=== PATIENT | female | born 1990 | race Caucasian/White ===

== ENCOUNTER 2016-12-15 12:01 | Emergency (ER) | payer BC ==
[2016-12-15 12:34] VITALS: BP 121/76
--- NOTE | 2016-12-15 12:45 | UC ---
Complaint Female HPI - HPI Summary HPI Summary: complaint of burning and itching with urination for the last 4 days increase in frequency and urgency not urinating a large amount of urine treated for BV 1 week ago- took flagyl still has purulent itchy vaginal discharge denies fever, abdominal pain and back pain LMP 11/27/16 last sexual encounter approx 2 weeks ago and partner was dx with chlamydia has appt [facility] sun[facility] with [facility] physical former partner dx with chlamydia - History Of Current Complaint Chief Complaint: UCGU Stated Complaint: UTI TYPE SYMPTOMS Time Seen by Provider: 12/15/16 12:36 Hx Obtained From: Patient Hx Last Menstrual Period: 12/04/16 - Allergies/Home Medications Allergies/Adverse Reactions: Allergies Allergy/AdvReac Type Severity Reaction Status Date / Time No Known Allergies Allergy Verified 07/09/15 09:31 Home Medications: Home Medications Metronidazole [Flagyl 500 MG TAB] 500 mg PO TID 12/15/16 [History Confirmed 07/22] Naltrexone [Vivitrol] 380 mg IM 12/15/16 [History] PMH/Surg Hx/FS Hx/Imm Hx Previously Healthy: Yes Endocrine History Of: Denies: Diabetes, Thyroid Disease, Hyperthyroidism, Hypothyroidism, Dyslipidemia Cardiovascular History Of: Denies: Cardiac Disorders, Hypertension, Pacemaker/ICD, Myocardial Infarction , Congestive Heart Failure, Atrial Fibrillation, Deep Vein Thrombosis, Bleeding Disorders Respiratory History Of: Denies: COPD, Asthma, Bronchitis, Pneumonia, Pulmonary Embolism GI/ History Of: Denies: Gastroesophageal Reflux, Ulcer, Gastrointestinal Bleed, Gall Bladder Disease, Kidney Stones, Diverticulitis, Renal Disease, Urosepsis Neurological History Of: Denies: TIA, CVA, Dementia, Seizures, Migraine Psychological History Of: Denies: Anxiety, Depression, Bipolar Disorder, Schizophrenia, Post Traumatic Stress Disorder Cancer History Of: Denies: Lung Cancer, Colorectal Cancer, Breast Cancer, Prostate Cancer, Cervical Cancer Other History Of: Negative For: HIV, Hepatitis B, Hepatitis C - Surgical History Surgical History: None - Family History Known Family History: Negative: Cardiac Disease, Hypertension, Diabetes - Social History Occupation: Employed Full-time Lives: With Family Alcohol Use: None Alcohol Amount: 8 months clean Substance Use Type: Heroin Substance Use Comment - Amount & Last Used: 8 months clean Smoking Status (MU): Former Smoker Type: Cigarettes Amount Used/How Often: 1/2 ppd Length of Time of Smoking/Using Tobacco: 8 years Have You Smoked in the Last Year: Yes Household Exposure Type: Cigarettes Review of Systems Constitutional: Negative Skin: Negative Eyes: Negative ENT: Negative Respiratory: Negative Cardiovascular: Negative Gastrointestinal: Negative Genitourinary: Dysuria Motor: Negative Neurovascular: Negative Musculoskeletal: Negative Neurological: Negative Psychological: Negative All Other Systems Reviewed And Are Negative: Yes Physical Exam Triage Information Reviewed: Yes Appearance: No Pain Distress, Well-Nourished Vital Signs: Initial Vital Signs Temp 98.8 F 12/15/16 12:26 Pulse 65 12/15/16 12:26 Resp 16 12/15/16 12:26 BP 121/76 12/15/16 12:26 Pulse Ox 99 12/15/16 12:26 Vital Signs Reviewed: Yes Eyes: Positive: Conjunctiva Clear ENT: Positive: Pharynx normal, TMs normal Neck: Positive: No Lymphadenopathy Respiratory: Positive: Lungs clear, Normal breath sounds, No respiratory distress, No accessory muscle use Cardiovascular: Positive: RRR, No Murmur, Pulses Normal Abdomen Description: Positive: Nontender, No Organomegaly, Soft. Negative: CVA Tenderness (R), CVA Tenderness (L), Distended, Guarding Bowel Sounds: Positive: Present Musculoskeletal: Positive: No Edema Neurological: Positive: Alert Psychological Exam: Normal Skin Exam: Normal - External genitalia without erythema, exudate or discharge. Vaginal vault has thick whitish green discharge. Cervix is of normal color without lesion. The os is closed. There is no bleeding noted. Uterus is noted to be of normal size and nontender. No cervical motion tenderness is seen. No masses are palpated. The adnexa are without masses or tenderness. Complaint Female Dx - Course Course Of Treatment: exam completed. will treat for chlamydia now. STD testing done. will treat for UTI - Differential Dx/Diagnosis Differential Diagnosis/HQI/PQRI: Sexually Transmitted Disease, Urinary Tract Infection Provider Diagnoses: UTI. testing for sexually transmitted infection Discharge - Discharge Plan Condition: Stable Disposition: HOME Patient Education Materials: Urinary Tract Infection in Women (ED), Sexually Transmitted Diseases (ED), Safe Sex (ED) Additional Instructions: please finish your prescription for flagyl You have been treated for probable chlamydia infection please abstain from sexual contact for 7 days you are alos being treated for urinary infection Please take antibiotic as directed Increase fluids and rest Take acetaminophen or ibuprofen for fever or pain Please review your discharge instructions. If your symptoms do not improve please call your primary care provider or return to urgent care. please call next week for your results of testing for sexually transmitted diseases
[2016-12-15] MEDS ORDERED: Azithromycin TAB* 250 MG PO ONE (12:58)
--- NOTE | 2016-12-16 16:59 | UC ---
Progress - Progress Note Progress Note: VAGINAL SWAB POSITIVE FOR YEAST. MAGDY SENT TO [facility] IN [place].
[2016-12-17 11:35] LABS: Syphilis Index < 0.1 Index
== END 2016-12-15 13:39 | disposition home or self-care (01) ==
LOC: UCEAST 12:01
DX: N39.0 Urinary tract infection, site not specified (principal); Z11.3 Encounter for screening for infections with a predominantly sexual mode of transmission; F11.90 Opioid use, unspecified, uncomplicated; Z87.891 Personal history of nicotine dependence
CPT/HCPCS: 36415; 81003; 86592; 86803; 87086; 87389; 87480; 87491; 87510; 87591; 87661; 99212; A9270-GY; G0463; G0475

== ENCOUNTER 2016-12-25 09:44 | Emergency (ER) | payer BC ==
[2016-12-25 09:56] VITALS: BP 122/65
--- NOTE | 2016-12-25 11:33 | UC ---
Complaint Female HPI - HPI Summary HPI Summary: complaint of burning with urination that started approx 3 days ago increase in frequency and urgency denies blood in urine finished a course of bactrim for 3 days- last dose 1 week ago denies back pain, abdominal pain, vaginal discharge and fever not taking any medication for symptoms - History Of Current Complaint Chief Complaint: UCGU Stated Complaint: UTI SYMPTOMS-BURNING/ITCHING Time Seen by Provider: 12/25/16 11:20 Hx Obtained From: Patient Hx Last Menstrual Period: 11/24/16 - Allergies/Home Medications Allergies/Adverse Reactions: Allergies Allergy/AdvReac Type Severity Reaction Status Date / Time No Known Allergies Allergy Verified 07/09/15 09:31 PMH/Surg Hx/FS Hx/Imm Hx Previously Healthy: No - UTI, treatment for chlamydia Endocrine History Of: Denies: Diabetes, Thyroid Disease, Hyperthyroidism, Hypothyroidism, Dyslipidemia Cardiovascular History Of: Denies: Cardiac Disorders, Hypertension, Pacemaker/ICD, Myocardial Infarction , Congestive Heart Failure, Atrial Fibrillation, Deep Vein Thrombosis, Bleeding Disorders Respiratory History Of: Denies: COPD, Asthma, Bronchitis, Pneumonia, Pulmonary Embolism GI/ History Of: Denies: Gastroesophageal Reflux, Ulcer, Gastrointestinal Bleed, Gall Bladder Disease, Kidney Stones, Diverticulitis, Renal Disease, Urosepsis Neurological History Of: Denies: TIA, CVA, Dementia, Seizures, Migraine Psychological History Of: Denies: Anxiety, Depression, Bipolar Disorder, Schizophrenia, Post Traumatic Stress Disorder Cancer History Of: Denies: Lung Cancer, Colorectal Cancer, Breast Cancer, Prostate Cancer, Cervical Cancer Other History Of: Negative For: HIV, Hepatitis B, Hepatitis C - Surgical History Surgical History: None - Family History Known Family History: Negative: Cardiac Disease, Hypertension, Diabetes - Social History Occupation: Employed Full-time Lives: With Family Alcohol Use: None Alcohol Amount: 8 months clean Substance Use Type: Heroin Substance Use Comment - Amount & Last Used: 8 months clean Smoking Status (MU): Former Smoker Type: Cigarettes Amount Used/How Often: 1/2 ppd Length of Time of Smoking/Using Tobacco: 8 years Have You Smoked in the Last Year: Yes Household Exposure Type: Cigarettes Cessation Counseling: Patient Advised to Stop Review of Systems Constitutional: Negative Skin: Negative Eyes: Negative ENT: Negative Respiratory: Negative Cardiovascular: Negative Gastrointestinal: Negative Genitourinary: Dysuria, Frequency, Urgency Motor: Negative Neurovascular: Negative Musculoskeletal: Negative Neurological: Negative Psychological: Negative All Other Systems Reviewed And Are Negative: Yes Physical Exam Triage Information Reviewed: Yes Appearance: No Pain Distress, Well-Nourished Vital Signs: Initial Vital Signs Temp 97.5 F 12/25/16 09:52 Pulse 81 12/25/16 09:52 Resp 17 12/25/16 09:52 BP 122/65 12/25/16 09:52 Pulse Ox 100 12/25/16 09:52 Vital Signs Reviewed: Yes Eyes: Positive: Conjunctiva Clear ENT: Positive: Pharynx normal, TMs normal Neck: Positive: No Lymphadenopathy Respiratory: Positive: Lungs clear, Normal breath sounds, No respiratory distress, No accessory muscle use Cardiovascular: Positive: RRR, No Murmur, Pulses Normal Abdomen Description: Positive: Nontender, No Organomegaly, Soft. Negative: CVA Tenderness (R), CVA Tenderness (L), Distended, Guarding Bowel Sounds: Positive: Present Musculoskeletal: Positive: No Edema Neurological: Positive: Alert Psychological Exam: Normal Skin Exam: Normal Complaint Female Dx - Course Course Of Treatment: exam completed. will treat with macrobid for UTI- last culture shows susceptibility to macrobid - Differential Dx/Diagnosis Differential Diagnosis/HQI/PQRI: Urinary Tract Infection Provider Diagnoses: UTI Discharge - Discharge Plan Condition: Stable Disposition: HOME Prescriptions: Nitrofurantoin Monohyd Macro [Macrobid] 100 mg PO BID #14 cap Phenazopyridine TAB* [Pyridium 100 mg TAB*] 100 mg PO TID #6 tab Patient Education Materials: Urinary Tract Infection in Women (ED) Referrals: Amando Ellis MD [Primary Care Provider] - Additional Instructions: Please take antibiotic as directed Increase fluids and rest Take acetaminophen or ibuprofen for fever or pain Please review your discharge instructions. If your symptoms do not improve please call your primary care provider or return to urgent care.
== END 2016-12-25 11:38 | disposition home or self-care (01) ==
LOC: UCEAST 09:44
DX: N39.0 Urinary tract infection, site not specified (principal); Z87.891 Personal history of nicotine dependence
CPT/HCPCS: 81003; 87086; 99211; G0463

== ENCOUNTER 2017-09-30 20:27 | Emergency (ER) | payer OTHER ==
[2017-09-30 20:49] VITALS: BP 128/76
[2017-09-30] MEDS ORDERED: Mupirocin 2% OINT* TUBE TOPICAL ONE (21:06)
[2017-09-30] MEDS ORDERED: Tetan/Diph/Pertus SYR(Tdap)* 0.5 ML SYR(BOOSTRIX) use SYR IM ONE (21:21)
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
== END 2017-09-30 21:40 | disposition home or self-care (01) ==
LOC: UCEAST 20:27
DX: T23.211A Burn of second degree of right thumb (nail), initial encounter (principal); T31.0 Burns involving less than 10% of body surface; X19.XXXA Contact with other heat and hot substances, initial encounter; Y93.E8 Activity, other personal hygiene; Y92.009 Unspecified place in unspecified non-institutional (private) residence as the place of occurrence of the external cause; Z23 Encounter for immunization; Z88.5 Allergy status to narcotic agent; Z87.891 Personal history of nicotine dependence
CPT/HCPCS: 16020; 90715; 96372; 99212; G0463

== ENCOUNTER 2019-01-22 17:28 | Emergency (ER) | payer BC, OTHER ==
--- OUTSIDE RECORDS SUMMARY | 2019-01-22 17:34 | XMS REPORT | Continuity of Care Document ---
:1990 Author Organization [facility] Address [address], [place] [id number] Phone Care Team Providers Name Role Phone Patsy Bai NP Unavailable Unavailable Allergies, Adverse Reactions, Alerts Substance Reaction Status No Known Allergies Active Medications Medication Instructions Dosage Effective Status Comments Dates (start - stop) Valtrex 1 gram take 1 tablet by - Active tablet oral route daily metronidazole 500 take 1 tablet by - Active mg tablet oral route twice a day for 7 days LILETTA (unknown Not Available - No Longer strength) Active Problems Condition Effective Dates (start - Clinical Status Comments stop) Encounter for removal of intrauterine contraceptive device Encntr screen for infections w sexl mode of transmiss Encounter for oth general cnsl and advice on contraception Acute vaginitis Herpesviral infection of urogenital system, unspecified Candidiasis of vulva and vagina Acute vaginitis Human immunodeficiency virus [HIV] - counseling Encounter for screening for human - immunodeficiency virus Encounter for routine checking of intrauterine contracep dev Encntr screen for infections w sexl mode of transmiss Acute vaginitis Encounter for test, result negative Human immunodeficiency virus [HIV] - counseling Encounter for screening for human - immunodeficiency virus Encounter for routine checking of intrauterine contracep dev Encntr screen for infections w sexl mode of transmiss Acute vaginitis Encounter for test, result negative Encounter for insertion of intrauterine contraceptive device Encntr screen for infections w sexl mode of transmiss Acute vaginitis Urinary tract infection, site not specified Dysuria Enctr srvlnc implantable subdermal contraceptive Encounter for removal of intrauterine contraceptive device Enctr for init prescription of implntbl subdermal contracep Encounter for oth general cnsl and - advice on contraception Encounter for routine checking of intrauterine contracep dev Acute vaginitis Human immunodeficiency virus [HIV] - counseling Encounter for routine checking of intrauterine contracep dev Encntr screen for infections w sexl mode of transmiss Noninflammatory disorder of vagina, unspecified Encounter for screening for human - immunodeficiency virus Enctr srvlnc implantable subdermal contraceptive Encounter for insertion of intrauterine contraceptive device Encntr screen for infections w sexl mode of transmiss Frequency of micturition Encntr screen for infections w sexl mode of transmiss Acute vaginitis Encntr screen for infections w sexl mode of transmiss Enctr srvlnc implantable subdermal contraceptive Other psychoactive substance dependence, in remission Enctr srvlnc implantable subdermal contraceptive Chlamydial infection, unspecified STI Screening BV Implant, Insertion BV Yeast-vulvovaginal Vulvar Lesion Chlamydia Chlamydia Family Planning Counseling IUC Removal STI Screening BV HIV, Screening HIV Counseling LABORATORY EXAM NOS LABORATORY EXAM NOS RhD positive - Active CDD Procedures Procedure Date WET SMEAR ASSAY OF BODY FLUID-PH OFFICE/OUTPATIENT VISIT, EST REMOVE INTRAUTERINE DEVICE Tray Fee N.GONORRHOEAE, DNA, AMP PROB CHYLMD DNA, AMP PROBE TRICHOMONAS VAGIN, DIR PROBE VAGINITIS RX 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 Other Tail Board Worker.Svc. STI Results Test Name Date and Time Measure Units Reference Range Abnormal Flag Status Comments Panel Description: Wet Mount Final Wet Mount 12:27:22 Hyphae/Maria Victoria: noBudding yeast: Final noTrich: noClue cells: yes (>=20%)WBCs: yes (moderate)Amine/Whiff test: negativepH: 5.5 Advance Directives Directive Yes / No Effective Date File Name No information Encounters Encounter Practice Location Reason(s) Diagnoses Date Provider Providers Description For Visit Copied on Encounter OFFICE/OUTPA [facility] Vaginal Encounter for Hayden- Richardson Referring TIENT VISIT, [facility] [place] a/o Vulvar removal of - Patsy. 620 Provider: EST [place] Itching intrauterine [address], [place] (chief contraceptive [place], [place], Richardson J, [address] [place], 620 complaint) deviceEncntr [address], [place]. [place] screen for tel:[phone] St, [place], [place], [place], [place] [address] [place], [address]. [place], sex[place] mode of tel:[phone], transmissEncoun 444661 [place] ter for oth tel:[phone] general cnsl [id number] and advice on contraceptionAc mounika vaginitisHerpes viral infection of urogenital system, unspecifiedCand idiasis of vulva and vagina [facility] Acute vaginitis Sep- [facility] [place]. [address], [place], [place], [facility], [address] [address]. [address] [place] tel:[phone] St, [place], [address] [place], [id number], [place] tel:[phone] [facility] Human Feb-0 Raphaelidis Referring [facility] [place] immunodeficienc [place]. 620 W Provider: [facility] y virus [HIV] [address], [place] counselingEncou [place], Raphaelidis [facility], 620 [place] [address]. , [address] screening for tel:[phone] [address], [place], [place], [place] [address] [place], immunodeficienc [address]. [id number], y tel:[phone] [place] virusEncounter [id number] tel:[phone] for routine [phone] checking of intrauterine contracep devEncntr screen for infections w sexl mode of transmissAcute vaginitisEncoun ter for test, result negative [facility] Human Dec- Brenton Mustafa. Referring [facility] [place] immunodeficienc [address] [place] Provider: Caridad y virus [HIV] [address] St, [place], [place] [address], [place], [place], 620 nter for [place]. [address] [place] [address] [place] screening for [facility], [place], [place], [place], [place], [address]. [place], immunodeficienc [id number], y [place] virusEncounter tel:[phone] for routine [phone] checking of intrauterine contracep devEncntr screen for infections w sexl mode of transmissAcute vaginitis [facility] Encounter for [place]-Hem Referring [facility] [place] test, 2-201 michael Sueane. Provider: [facility] result 8 [address] [place] [address], [place], [place], 620 [place], [address]. mmer, [address] insertion of tel:[phone] [address], St, [place], intrauterine [address] [place] [address]. [id number], deviceEncntr tel:[phone] [place] screen for 271091 tel:[phone] infections w 045875 sexl mode of transmissAcute vaginitisUrinar y tract infection, site not specifiedDysuri a [facility] Enctr srvlnc Hayden- [place]. Referring [facility] [place] implantable [address] Provider: [facility] subdermal [address], [place], [place] [address], [place], [place], [address] [place], [place], [place], [place], [address]. [place], [id number], [place] tel:[phone] [facility] Encounter for Guggino Referring [facility] [place] removal of 1-201 [place]. Provider: [facility] intrauterine 7 [address], [place], [place], [place], 620 [place], [address], [address] [place]. [address], St, [place], prescription of tel:[phone] [place] impl[place]bl [address]. [id number], subdermal tel:[phone] [place] contracep 615911 tel:[phone] [facility] Encounter for Korn[place] [place] oth general 0-201 Brianna. [address] [place] cnsl and advice [address], [place], [place], 620 contraceptionEn [address]. [address] [place] counter for tel:[phone] St, [place], routine [address] [place], checking of [id number], intrauterine [place] contracep tel:[phone] devAcute 846195 vaginitis [facility] Human May- Brenton Mustafa. Referring [facility] [place] immunodeficienc 2 [address] Provider: Caridad y virus [HIV] 7 St, [place], [place], [address], [place], [place], 620 nter for [place]. [address] routine [address], [place], [place], [place], [place], [address]. [place], intrauterine [id number], contracep [place] devEncntr tel:[phone] screen for [phone] infections w sexl mode of transmissNoninf lammatory disorder of vagina, unspecifiedEnco unter for screening for human immunodeficienc y virus [facility] Enctr srvlnc Sep-0 Brenton Mustafa. [facility] [place] implantable [address] [place] subdermal [address], [place], [place], [address], [place], 620 counter for [place]. [address] [place] insertion of [address], [place], intrauterine [place], contraceptive [id number], deviceEncntr [place] screen for tel:[phone] infections w [phone] sexl mode of transmiss [facility] Frequency of December-0 Parete [facility] [place] micturitionEncn . [address] tr screen for [address], [place], [place], 620 [place] [address]. [place] transmissAcute tel:+[phone] St, [place], vaginitis [address] [place], [id number], [place] tel:[phone] [facility] Encntr screen Jul- Borglum [facility] [place] for infections 0-201 Carmen. 620 [place] w sexl mode of [address], [place] transmissEnctr [place], [place], 620 srvlnc [address], [place]. [place] implantable tel:[phone] St, [place], subdermal [address] [place], contraceptiveOt [id number], her [place] psychoactive tel:[phone] substance 150518 dependence, in remission [facility] Enctr srvlnc Borgl[facility] [place] implantable Carmen. 620 [place] subdermal [address], [place] contraceptiveCh [place], [place], [facility], 620 lamydial [address], [place]. [place] infection, tel:+[phone] St, [place], unspecified [address] [place], [id number], [place] tel:[phone] [facility] STI ScreeningBV P[facility]te [facility] [place] Ramona. [address], [place], [facility], [address] [address]. [address] [place] tel:+[phone] St, [place], [address] [place], [id number], [place] tel:[phone] [facility] Implant, Apr- Ardon Jamia. [facility] [place] Insertion [address], [place], [place], [address]. [facility], [facility] tel:[phone] [address], [place], [place], [id number], [place] tel:[phone] [facility] Apr- [facility] [place]. [address], [place], [facility], [address] [address]. [address] [place] tel:+[phone] St, [place], [address] [place], [id number], [place] tel:[phone] [facility] BVYeast-vulvova Mar- [facility] [place] ginalVulvar [place]. [address], [place], [facility], [address] [address]. [address] [place] tel:+[phone] St, [place], [address] [place], [id number], [place] tel:[phone] [facility] Chlamydia Mar-0 Ardon Jamia. Consulting [facility] [place] [address] Provider: [facility] [address], [place], [address]. [facility]. [facility], [facility] tel:[phone], [place], [place], [id number], [place] tel:[phone] [facility] Chlamydia Mar-0 DiCostanzo [facility] [place] 7-201 Karine. [address], [facility], [place], [facility], 620 [address]. [address] [place] tel:[phone] St, [place], [address] [place], [id number], [place] tel:[phone] [facility] Family Planning Mar-0 Avidano [facility] [place] CounselingIUC 2 [place]. [address] Removal [address], [facility], [place], [facility], 620 [address]. [address] [place] tel:[phone] St, [place], [address] [place], [id number], [place] tel:[phone] [facility] STI ScreeningBV Aug-0 [facility] [place] 1 [place]. [address], [facility], [place], [facility], [address] [address]. [address] [place] tel:[phone] St, [place], [address] [place], [id number], [place] tel:[phone] [facility] HIV, Mar-0 [facility] [place]. [address] W [facility] Counseling [address], [facility], [place], [facility], [address] [address]. [address] [place] tel:[phone] St, [place], [address] [place], [id number], [place] tel:[phone] [facility] LABORATORY EXAM Mar-2 Raphaelidis [facility] [place] NOS 6-201 [place]. [address], [facility], [place], [facility], [address] [address]. [address] [place] tel:[phone] St, [place], [address] [place], [id number], [place] tel:[phone] [facility] LABORATORY EXAM [facility] [place] NOS 4-201 [place]. [address], [facility], [place], [facility], 620 [address]. [address] [place] tel:[phone] St, [place], [address] [place], [id number], [place] tel:[phone] Family History Family Member Diagnosis Age At Onset 1st degree relative No hx of coronary heart disease (female <65, male <55) 1st degree relative No hx of venous thromboembolism 1st degree relative No hx of cancer of breast, colon, endometrium or ovary Family history of Hypertension Family history of Coronary artery disease Immunizations Vaccine Date Status Comments measles, mumps and rubella administered Note: per pt history ; Source: virus vaccine Source Unspecified Hep A (adult) administered Note: per pt history ; Source: Source Unspecified Hep B, adult, 3 dose administered Note: per pt history ; Source: Source Unspecified HPV (quadrivalent) administered Note: per pt history ; Source: Source Unspecified Payers Payer name Insurance type Covered alliance party ID Authorization(s) Jack MARIEE [facility] CI [id number] Social History Type Description Quantity Date Captured Comments Alcohol Use Details Unknown Caffeine Use Details Unknown Tobacco Use Status Unknown Smoking Status Current every day smoker Smoking Tobacco Use Cigarette: Years Used 8 Cigarette: No Details Available Details Sex Female Vital Signs Date / Height Weight BMI Pulse Blood Temperature Respiratory Body Head BMI Pulse Inhaled Time: Rate Pressure Rate Surface Circumference percentile Ox Ox Area No information Chief Complaint And Reason For Visit Most recent encounter only, dated '01/08/2019 11:50'. Vaginal a/o Vulvar Itching (chief complaint) Reason For Referral Reason For Referral No information Plan Of Treatment Date Type Action Status Goal Tobacco cessation counseling completed History Of Present Illness Encounter Date Complaint History Of Present Illness No information Functional Status Date Functional Assessment No information Medications Administered Medication Instructions Dosage Effective Dates (start - stop) Status Comments No information Instructions Date Instruction Additional Information No information Assessments Type Assessment Date assessment Encounter for removal of intrauterine contraceptive device 2018 assessment Encntr screen for infections w sexl mode of transmiss assessment Encounter for oth general cnsl and advice on contraception 2018 assessment Acute vaginitis assessment Herpesviral infection of urogenital system, unspecified 2018 assessment Candidiasis of vulva and vagina Goals Health Concern Goal Type Priority Status Date No information Medical Equipment Description Device [place] Device Identifier Effective Dates (start - stop ) Status No information Mental Status Date Cognitive Assessment Normal Orientation Health Concerns Observation Date No information Concern Status Date No information
[2019-01-22 17:48] VITALS: BP 123/77
--- NOTE | 2019-01-22 18:55 | UC ---
Cardiac HPI - HPI Summary HPI Summary: 28-year-old woman comes in with a chief complaint of right sided chest pain. About 2 weeks ago patient had trauma to her chest. She had chest x-rays at that time and no fracture was seen. Her pain was improving until yesterday when she had sudden onset of splinting right lateral posterior lower chest pain. Does not feel short of breath at rest. Pain is worse with taking a deep breath or any kind of movement. No complaint of any abdominal pain. No fevers or chills or chest congestion. - History of Current Complaint Chief Complaint: UCGeneralIllness Stated Complaint: RIB INJURY Time Seen by Provider: 01/22/19 17:37 Hx Last Menstrual Period: unsure; states preg test this morning and it was negative Pain Intensity: 8 - Allergy/Home Medications Allergies/Adverse Reactions: Allergies Allergy/AdvReac Type Severity Reaction Status Date / Time narcotics Allergy recovery Uncoded 09/30/17 20:50 PMH/Surg Hx/FS Hx/Imm Hx Previously Healthy: Yes Other History Of: Negative For: HIV, Hepatitis B, Hepatitis C - Surgical History Surgical History: None - Family History Known Family History: Negative: Cardiac Disease, Hypertension, Diabetes - Social History Alcohol Use: None Alcohol Amount: 8 months clean Substance Use Type: Heroin Substance Use Comment - Amount & Last Used: 8 months clean Smoking Status (MU): Heavy Every Day Tobacco Smoker Type: Cigarettes Amount Used/How Often: 1/2 ppd Length of Time of Smoking/Using Tobacco: 8 years Have You Smoked in the Last Year: Yes Household Exposure Type: Cigarettes Review of Systems All Other Systems Reviewed And Are Negative: Yes Constitutional: Positive: Negative Skin: Positive: Negative Eyes: Positive: Negative ENT: Positive: Negative Respiratory: Positive: Other - SEE HPI Cardiovascular: Positive: Chest Pain Gastrointestinal: Positive: Negative Motor: Positive: Negative Neurovascular: Positive: Negative Musculoskeletal: Positive: Negative Neurological: Positive: Negative Psychological: Positive: Negative Is Patient Immunocompromised?: No Physical Exam Triage Information Reviewed: Yes Appearance: Well-Appearing, Well-Nourished, Pain Distress - MILD WITH ROM Vital Signs: Initial Vital Signs Temp 99.2 F 01/22/19 17:42 Pulse 89 01/22/19 17:42 Resp 18 01/22/19 17:42 BP 123/77 01/22/19 17:42 Pulse Ox 98 01/22/19 17:42 Vital Signs Reviewed: Yes Eye Exam: Normal Eyes: Positive: Conjunctiva Clear Neck: Positive: Supple Respiratory: Positive: Lungs clear, Normal breath sounds, No respiratory distress, Other: - TENDER TO PALPATION RT POSTERIOR/LATERAL CHEST Cardiovascular: Positive: RRR Musculoskeletal Exam: Normal Musculoskeletal: Positive: Strength Intact, ROM Intact Neurological Exam: Normal Neurological: Positive: Alert, Muscle Tone Normal Psychological Exam: Normal Psychological: Positive: Age Appropriate Behavior Skin Exam: Normal - Assessment/Plan Course Of Treatment: I discussed the x-rays with the patient. I see a right sided eighth rib fracture with minimal displacement. Radiologist reading is pending. I do not see a pneumothorax. Patient was given an incentive spirometer in clinic. The pain is ibuprofen and acetaminophen she prefers to not have any narcotics. Follow-up with primary care doctor get reevaluated sooner if worse or any questions or concerns. - Clinical Impression Provider Diagnosis: Right rib fracture Discharge - Sign-Out/Discharge Documenting (check all that apply): Patient Departure All imaging exams completed and their final reports reviewed: No - Discharge Plan Condition: Stable Disposition: HOME Patient Education Materials: Rib Fracture (ED) Referrals: Amando Ellis MD [Primary Care Provider] - Additional Instructions: FOLLOW UP WITH YOUR DOCTOR IF NOT COMPLETELY IMPROVED. GET RECHECKED SOONER IF YOUR CONDITION WORSENS; PAIN, SHORTNESS OF BREATH, FEVER , YOU FEEL LIKE PASSING OUT, YOU FEEL ILL OR ANY QUESTIONS OR CONCERNS. USE THE INCENTIVE SPIROMETER EVERY 4 HOURS OR MORE FREQUENTLY TO HELP AVOID A RESPIRATORY INFECTION. - Billing Disposition and Condition Condition: STABLE Disposition: Home
--- NOTE | 2019-01-23 07:40 | UC ---
- Progress Note Progress Note: Patient with nondisplaced fracture. No change in initial management per Dr. Wallace - EKG/XRAY/CT Xray Comments: nondisplaced fracture of right posterior 8th rib Course/Dx - Diagnoses Provider Diagnoses: Right rib fracture Discharge - Sign-Out/Discharge Documenting (check all that apply): Post-Discharge Follow Up All imaging exams completed and their final reports reviewed: Yes - Discharge Plan Condition: Stable Disposition: HOME Patient Education Materials: Rib Fracture (ED) Referrals: Amando Ellis MD [Primary Care Provider] - Additional Instructions: FOLLOW UP WITH YOUR DOCTOR IF NOT COMPLETELY IMPROVED. GET RECHECKED SOONER IF YOUR CONDITION WORSENS; PAIN, SHORTNESS OF BREATH, FEVER , YOU FEEL LIKE PASSING OUT, YOU FEEL ILL OR ANY QUESTIONS OR CONCERNS. USE THE INCENTIVE SPIROMETER EVERY 4 HOURS OR MORE FREQUENTLY TO HELP AVOID A RESPIRATORY INFECTION. - Billing Disposition and Condition Condition: STABLE Disposition: Home
== END 2019-01-22 19:15 | disposition home or self-care (01) ==
LOC: UCEAST 17:28
DX: S22.31XA Fracture of one rib, right side, initial encounter for closed fracture (principal); X58.XXXA Exposure to other specified factors, initial encounter; Y92.9 Unspecified place or not applicable; F17.210 Nicotine dependence, cigarettes, uncomplicated
CPT/HCPCS: 84702; 99211; G0463

== ENCOUNTER 2021-09-25 04:37 | Inpatient (IN) ==
[2021-09-25] MEDS: Lactated Ringers 1000 ml BAG 1,000 ML IV ONE ×2 (05:46→06:25)
[2021-09-25 05:47] LABS: Urine Benzodiazepine Screen None Detected (None Detect); Urine Cannabinoids Screen None Detected (None Detect); Urine Opiates Screen None Detected (None Detect)
[2021-09-25] MEDS ORDERED: Buffered Lidocaine 1% SYRIN 1 ml INTRADERM ONE (05:55)
[2021-09-25] MEDS ORDERED: Lactated Ringers 1000 ml BAG 1,000 ML IV SCH ×2 (06:00→08:00)
[2021-09-25] MEDS ORDERED: OBEPIDURAL 0 ML EPIDURAL ONE (06:05)
[2021-09-25 06:26] LABS: Hematocrit 39 % (35-47); Hemoglobin 13.3 g/dL (12.0-16.0); Mean Corpuscular HGB Conc 34 g/dL (31-36); Mean Corpuscular Hemoglobin 30 pg (27-31); Mean Corpuscular Volume 87 fL (80-97); Mean Platelet Volume 8.9 fL (7.4-10.4); Platelet Count 227 10^3/uL (150-450); Red Blood Count 4.45 10^6 /uL (3.70-4.87); Red Cell Distribution Width 13 % (10-15); White Blood Count 8.9 10^3/uL (3.5-10.8)
[2021-09-25] MEDS ORDERED: Bupivacaine 0.25% SDV PF 10 ML VIAL INJ ONE (06:30)
[2021-09-25] MEDS ORDERED: fentaNYL 100 mcg/2 ml 50 MCG/ML VIAL ONE (06:30)
[2021-09-25 06:44] LABS: Albumin 3.6 g/dL (3.2-5.2); Albumin/Globulin Ratio 1.2 (1-3); Potassium 3.9 mmol/L (3.5-5.0); Total Bilirubin 0.4 mg/dL (0.2-1.0); Total Protein 6.6 g/dL (6.4-8.9); Uric Acid 6.2 mg/dL (2.3-6.6); eGFR CKD-EPI 124.3 (>60)
[2021-09-25] MEDS ORDERED: Oxytocin in LR 20 UNITS/1,000 ML BAG IVPB ONE (06:53)
[2021-09-25] MEDS ORDERED: Dibucaine 1% OINT 28.35 GM TUBE PR PRN (07:11)
[2021-09-25] MEDS ORDERED: Witch Hazel PAD JAR TOPICAL PRN (07:11)
[2021-09-25] MEDS ORDERED: Oxytocin in LR 20 UNITS/1,000 ML BAG IVPB SCH (08:00)
[2021-09-25] MEDS ORDERED: Ammonia Inhalant 1 EA AMP ONE (08:51)
[2021-09-26 06:22] LABS: ABS Eosinophils 0.2 10^3/ul (0-0.6); ABS Lymphocytes 1.9 10^3/ul (1.0-4.8); ABS Monocytes 0.5 10^3/ul (0-0.8); ABS Neutrophils 4.9 10^3/ul (1.5-7.7); Eosinophil % 2.4 %; Hematocrit 33 % (35-47); Lymphocyte % 25.6 %; Mean Corpuscular HGB Conc 33 g/dL (31-36); Mean Corpuscular Hemoglobin 29 pg (27-31); Mean Corpuscular Volume 87 fL (80-97); Mean Platelet Volume 8.2 fL (7.4-10.4); Nucleated Red Blood Cells % 0.1; Platelet Count 204 10^3/uL (150-450); Red Blood Count 3.78 10^6 /uL (3.70-4.87); Red Cell Distribution Width 14 % (10-15); White Blood Count 7.4 10^3/uL (3.5-10.8)
[2021-09-26 08:00] VITALS: BP 134/80
[2021-09-26] MEDS ORDERED: Measles, Mumps,Rubella VACC 0.5 ML/VIAL SUBCUT ONE (12:00)
== END 2021-09-26 11:45 | disposition home or self-care (01) | DRG 560 ==
LOC: MCHOBOUT 04:37 → MCHOB 05:52
PROVIDERS: ADMIT Midwife; ATTEND Midwife